=== PATIENT | female | born 1975 | race Caucasian/White ===

== ENCOUNTER 2020-07-06 07:36 | Day surgery (SDC) | payer OTHER, SELFPAY ==
[~2020-07-06] VITALS: Ht 167.6 cm; Wt 72.1 kg
[~2020-07-06 07:36] MED LIST: BIOT5TAB PO; CHOL400T PO; FERR325E14 PO; LEVO0.155 PO; LEVO500T6 PO; LISI-420 PO; NAPR-54 PO; VIC PO
[2020-07-06] MEDS ORDERED: fentaNYL citrate 0.05 MG/ML VIAL ONE (10:03)
[2020-07-06] MEDS ORDERED: MIDAZOLAM 5 MG/5 ML VIAL ONE (10:03)
[2020-07-06] MEDS ORDERED: diphenhydrAMINE 50 MG/ML VIAL ONE (10:04)
[2020-07-06] MEDS: MIDAZOLAM 2 MG/2 ML VIAL IVP ONE (10:43)
[2020-07-06] MEDS: fentaNYL citrate 0.05 MG/ML VIAL IVP ONE (10:44)
[2020-07-06] MEDS: LIDOCAINE 2% 100 MG/5 ML UJET TP ONE (10:58)
== END 2020-07-06 12:00 | disposition home or self-care (01) ==
LOC: MDS 07:36 → MMU 07:37 → EEVIPCON 10:00 → MDS 12:00
PROVIDERS: ATTEND Internal Medicine Gastroenterology
DX: Z12.11 Encounter for screening for malignant neoplasm of colon (principal); K44.9 Diaphragmatic hernia without obstruction or gangrene; K22.2 Esophageal obstruction; K20.9 Esophagitis, unspecified; K57.30 Diverticulosis of large intestine without perforation or abscess without bleeding; K57.32 Diverticulitis of large intestine without perforation or abscess without bleeding; E03.9 Hypothyroidism, unspecified; Z80.0 Family history of malignant neoplasm of digestive organs; I10 Essential (primary) hypertension; Z20.828 Contact with and (suspected) exposure to other viral communicable diseases
CPT/HCPCS: 43239; 45378; 81025; J2250; J3010; U0003; J1200

== ENCOUNTER 2021-07-26 07:09 | Day surgery (SDC) | payer OTHER, SELFPAY ==
[~2021-07-26] VITALS: Ht 167.6 cm; Wt 81.6 kg
[~2021-07-26 07:09] MED LIST changes: -LISI-420 PO; +LISI-487 PO
[2021-07-26] MEDS ORDERED: MIDAZOLAM 5 MG/5 ML VIAL ONE (09:01)
[2021-07-26] MEDS ORDERED: diphenhydrAMINE 50 MG/ML VIAL ONE (09:01)
[2021-07-26] MEDS ORDERED: fentaNYL citrate 0.05 MG/ML VIAL ONE (09:01)
[2021-07-26] MEDS: fentaNYL citrate 0.05 MG/ML VIAL IVP ONE (09:08)
[2021-07-26] MEDS: MIDAZOLAM 2 MG/2 ML VIAL IVP ONE (09:09)
== END 2021-07-26 09:59 | disposition home or self-care (01) ==
LOC: MDS 07:09 → MMU 07:10 → MDS 09:59
PROVIDERS: ATTEND Internal Medicine Gastroenterology
DX: K21.00 Gastro-esophageal reflux disease with esophagitis, without bleeding (principal); K44.9 Diaphragmatic hernia without obstruction or gangrene; K31.89 Other diseases of stomach and duodenum; R19.4 Change in bowel habit; Z79.899 Other long term (current) drug therapy; Z20.822 Contact with and (suspected) exposure to COVID-19
CPT/HCPCS: 43239; 81025; 87426; J2250; J3010; 88305; 88312; 88313; 88342; J1200